=== PATIENT | male | born 1985 | race American Indian/Alaskan Native ===

== ENCOUNTER 2017-02-08 04:08 | Emergency (ER) | payer SELFPAY ==
[2017-02-08 05:26] LABS: Basophils % (Auto) 0.6 % (0.0-1.8); Eosinophils % (Auto) 2.7 % (0.0-4.3); Hematocrit 47.1 % (35.5-45.6); Hemoglobin 15.9 gm/dl (11.8-15.2); Mean Corpuscular HGB Conc 34 % (32-34); Mean Corpuscular Hemoglobin 31 pg (28-32); Mean Corpuscular Volume 91 fl (84-94); Platelet Count 140 K/mm3 (140-440); Red Cell Distribution Width 13.4 % (13.2-15.2); White Blood Count 4.9 K/mm3 (4.5-11.0)
[2017-02-08 05:34] LABS: Blood Urea Nitrogen 10 mg/dL (9-20); Calcium 9.1 mg/dL (8.4-10.2); Carbon Dioxide 25 mmol/L (22-30); Glucose 127 mg/dL (75-100)
[2017-02-08 05:35] LABS: Anion Gap 16 mmol/L; Chloride 102.6 mmol/L (98-107); Potassium 3.7 mmol/L (3.6-5.0); Sodium 140 mmol/L (137-145)
--- NOTE | 2017-02-08 06:25 | Emergency Department Report ---
ED General Adult HPI - General Chief complaint: Headache Stated complaint: HEAD PAIN, LEFT ARM/SIDE PAIN Time Seen by Provider: 02/08/17 06:20 Source: patient Mode of arrival: Ambulatory Limitations: No Limitations - History of Present Illness Initial comments: He presents to the emergency department with complaint of left sided headache which she has had "for more than 5 years". He has no primary care provider. He states he's had a CT of his head "a long time ago". He states that he feels like he has pain which begins in his left periorbital area. According to triage she sometimes has left arm pain and numbness. He denies any numbness now or left arm pain. He's had no chest pain. He does not report any difficulty with speech or coordination. He does not report any acute symptoms. He states he's had these current headaches for some time. The patient states "I am blind". He denies any actual acute change in his vision. Does not appear to have any difficulty with his visual acuity grossly. -: year(s) Location: head Radiation: non-radiation Severity scale (0 -10): 4 Quality: aching Consistency: intermittent, now resolved Improves with: none Worsens with: none Associated Symptoms: other Treatments Prior to Arrival: none - Related Data Previous Rx's Medication Instructions Recorded Last Taken Type Butalb/Acetaminophen/Caffeine 1 cap PO Q6HR PRN #10 cap 02/08/17 Unknown Rx [Fioricet 50-300-40 mg CAP] Allergies Allergy/AdvReac Type Severity Reaction Status Date / Time No Known Allergies Allergy Unverified 06/30/16 16:00 ED Review of Systems ROS: Stated complaint: HEAD PAIN, LEFT ARM/SIDE PAIN Other details as noted in HPI Constitutional: denies: chills, fever Eyes: denies: eye pain, eye discharge, vision change ENT: denies: ear pain, throat pain Respiratory: denies: cough, shortness of breath, wheezing Cardiovascular: denies: chest pain, palpitations Endocrine: no symptoms reported Gastrointestinal: denies: abdominal pain, nausea, diarrhea Genitourinary: denies: urgency, dysuria Musculoskeletal: denies: back pain, joint swelling, arthralgia Skin: denies: rash, lesions Neurological: as per HPI, headache, other (patient does not report any acute change of vision nor diplopia.). denies: weakness, paresthesias Psychiatric: denies: anxiety, depression Hematological/Lymphatic: denies: easy bleeding, easy bruising ED Past Medical Hx - Past Medical History Hx Hypertension: Yes - Surgical History Additional Surgical History: pneumothorax left side - Family History Family history: no significant - Social History Smoking Status: Current Every Day Smoker Substance Use Type: None - Medications Home Medications: Home Medications Medication Instructions Recorded Confirmed Last Taken Type Butalb/Acetaminophen/Caffeine 1 cap PO Q6HR PRN #10 cap 02/08/17 Unknown Rx [Fioricet 50-300-40 mg CAP] ED Physical Exam - General Limitations: No Limitations General appearance: alert, in no apparent distress - Head Head exam: Present: atraumatic, normocephalic - Eye Eye exam: Present: normal appearance, PERRL, EOMI. Absent: scleral icterus - ENT ENT exam: Present: normal exam, mucous membranes moist - Neck Neck exam: Present: normal inspection - Respiratory Respiratory exam: Present: normal lung sounds bilaterally. Absent: respiratory distress - Cardiovascular Cardiovascular Exam: Present: regular rate, normal rhythm. Absent: systolic murmur, diastolic murmur, rubs, gallop - GI/Abdominal GI/Abdominal exam: Present: soft, normal bowel sounds. Absent: distended, tenderness, guarding, rebound, rigid - Rectal Rectal exam: Present: deferred - Extremities Exam Extremities exam: Present: normal inspection - Back Exam Back exam: Present: normal inspection - Neurological Exam Neurological exam: Present: alert, oriented X3, CN II-XII intact, other (rel testing was normal gait testing was normal. No nystagmus visual ayala were equal by confrontation.). Absent: motor sensory deficit - Psychiatric Psychiatric exam: Present: normal affect, normal mood - Skin Skin exam: Present: warm, dry, intact, normal color. Absent: rash ED Course Vital Signs 02/08/17 04:37 Temperature 98.4 F Pulse Rate 53 L Respiratory 18 Rate Blood Pressure 128/88 Blood Pressure 128/88 [Left] O2 Sat by Pulse 97 Oximetry ED Medical Decision Making - Lab Data Result diagrams: 02/08/17 05:07 02/08/17 05:07 Laboratory Results - last 24 hr 02/08/17 02/08/17 05:07 05:07 WBC 4.9 RBC 5.20 H Hgb 15.9 H Hct 47.1 H MCV 91 MCH 31 MCHC 34 RDW 13.4 Plt Count 140 Lymph % (Auto) 39.4 H [place] % (Auto) 10.3 H Eos % (Auto) 2.7 Baso % (Auto) 0.6 Lymph # 1.9 [place] # 0.5 Eos # 0.1 Baso # 0.0 Seg Neutrophils % 47.0 Seg Neutrophils # 2.3 Sodium 140 Potassium 3.7 Chloride 102.6 Carbon Dioxide 25 Anion Gap 16 BUN 10 Creatinine 1.0 Estimated GFR > 60 BUN/Creatinine Ratio 10.00 Glucose 127 H Calcium 9.1 - Radiology Data Radiology results: report reviewed, image reviewed interpreted by me: To the head appears normal to me. Awaiting radiologist interpretation. Critical care attestation.: If time is entered above; I have spent that time in minutes in the direct care of this critically ill patient, excluding procedure time. ED Disposition Clinical Impression: Cephalalgia Qualifiers: Headache type: unspecified Headache chronicity pattern: chronic headache Intractability: not intractable Qualified Code(s): R51 - Headache Disposition: DISCHARGED TO HOME OR SELFCARE Is pt being admited?: No Does the pt Need Aspirin: No Condition: Stable Instructions: Acute Headache (ED) Additional Instructions: Follow-up with a primary care provider, neurologist and a qualified eye physician is recommended. I have written you a prescription for your headaches. Return any acute change or problem. Prescriptions: Butalb/Acetaminophen/Caffeine [Fioricet 50-300-40 mg CAP] 1 cap PO Q6HR PRN #10 cap PRN Reason: Headache Referrals: SOPHIA CANCHOLA MD [Primary Care Provider] - 3-5 Days [facility] [Provider Group] - 3-5 Days NELLY CAICEDO MD [Staff Physician] - 2-3 Days Time of Disposition: 07:07
--- NOTE | 2017-02-08 06:58 | Cat Scan Report ---
FINAL REPORT EXAM: CT HEAD/BRAIN WO CON HISTORY: headache TECHNIQUE: CT of the head was performed. No intravenous contrast was administered. PRIORS: None. FINDINGS: There is no evidence of intracranial hemorrhage. There is no edema, mass effect or midline shift. There are no abnormal extra-axial fluid collections. The ventricles are appropriate for brain volume. There is no skull fracture seen. The visualized aspects of the sinuses are clear. IMPRESSION: There is no acute intracranial abnormality identified.
[2017-02-08 08:14] VITALS: BP 127/89
== END 2017-02-08 08:00 | disposition home or self-care (01) ==
LOC: ED 04:08
DX: R51 Headache (principal); I10 Essential (primary) hypertension; F17.200 Nicotine dependence, unspecified, uncomplicated
CPT/HCPCS: 36415; 70450; 80048; 85025; 93005; 93010

== ENCOUNTER 2017-03-24 19:09 | Emergency (ER) | payer SELFPAY | END 2017-03-24 19:50 | disposition left against medical advice (07) | LOC: ED 19:09 | DX: S01.511A Laceration without foreign body of lip, initial encounter (principal); Z53.21 Procedure and treatment not carried out due to patient leaving prior to being seen by health care provider ==

== ENCOUNTER 2018-04-10 00:58 | Emergency (ER) | payer SELFPAY ==
[2018-04-10 01:45] VITALS: BP 135/83
[2018-04-10] MEDS ORDERED: ASPIRIN PO ONE (01:45)
[2018-04-10 02:04] LABS: Hematocrit 43.9 % (35.5-45.6); Hemoglobin 14.7 gm/dl (11.8-15.2); Mean Corpuscular HGB Conc 34 % (32-34); Mean Corpuscular Hemoglobin 31 pg (28-32); Mean Corpuscular Volume 93 fl (84-94); Platelet Count 148 K/mm3 (140-440); Red Blood Count 4.72 M/mm3 (3.65-5.03); Red Cell Distribution Width 13.2 % (13.2-15.2)
[2018-04-10 02:32] LABS: BUN/Creatinine Ratio 14; Blood Urea Nitrogen 14 mg/dL (9-20); Calcium 8.7 mg/dL (8.4-10.2); Hemolysis Index 10
[2018-04-10 02:54] LABS: Basophils % (Manual) 0 % (0.0-1.8); RBC Morphology Normal; Total Cells Counted 100
== END 2018-04-10 03:07 | disposition left against medical advice (07) ==
LOC: ED 00:58
DX: R07.89 Other chest pain (principal); Z53.21 Procedure and treatment not carried out due to patient leaving prior to being seen by health care provider
CPT/HCPCS: 36415; 80048; 84484; 85007; 85025; 93005; 93010